=== PATIENT | male | born 1960 ===

== ENCOUNTER 2017-04-17 18:35 | Emergency (ER) | payer MEDICAID ==
[2017-04-17 18:49] VITALS: BP 149/102; PULSE 80; RESP 16; TEMP 97.3; O2SAT 99
--- NOTE | 2017-04-17 18:55 | ED PDOC ---
Upper Extremity Pain/Injury Time Seen by Provider: 04/17/17 18:54 Chief Complaint (Nursing): Upper Extremity Problem/Injury Chief Complaint (Provider): shoulder pain History Per: Patient History/Exam Limitations: no limitations Onset/Duration Of Symptoms: Days (x1 week) Current Symptoms Are (Timing): Still Present Additional Complaint(s): Peter Vargas is a 57 year old right hand dominant male who presents to the ED complaining of non-radiating left shoulder pain x 2 weeks. He denies any recent injury or trauma to shoulder but states he does a lot of heavy lifting on a regular basis. Patient denies any chest pain, SOB or ASENCIO. Patient reports taking 2 Motrin today around noon without relief. Tylenol taken the other day did not help either with pain. PMD: [facility] Past Medical History Reviewed: Historical Data, Nursing Documentation, Vital Signs Vital Signs: Last Vital Signs Temp 97.3 F L 04/17/17 18:44 Pulse 80 04/17/17 18:44 Resp 16 04/17/17 18:44 BP 149/102 H 04/17/17 18:44 Pulse Ox 99 04/17/17 18:44 - Medical History PMH: HTN - Surgical History Other surgeries: Unspecified pulmonary surgery - Family History Family History: States: No Known Family Hx - Living Arrangements Living Arrangements: With Family - Social History Current smoker - smoking cessation education provided: No Alcohol: None Drugs: Denies - Home Medications Home Medications: Ambulatory Orders Medication Instructions Recorded Cyclobenzaprine [Cyclobenzaprine 10 mg PO TID PRN #20 tab 04/17/17 HCl] Naproxen [Naprosyn] 500 mg PO BID #20 tab 04/17/17 traMADol [Ultram] 50 mg PO TID PRN #15 tab 04/17/17 - Allergies Allergies/Adverse Reactions: Allergies Allergy/AdvReac Type Severity Reaction Status Date / Time No Known Allergies Allergy Verified 04/17/17 18:48 Review of Systems ROS Statement: Except As Marked, All Systems Reviewed And Found Negative Musculoskeletal: Positive for: Shoulder Pain (left, x 2 weeks, denies trauma or injury) Physical Exam - Reviewed Nursing Documentation Reviewed: Yes Vital Signs Reviewed: Yes - Physical Exam Appears: Positive for: Well, Non-toxic, No Acute Distress Head Exam: Positive for: ATRAUMATIC Skin: Positive for: Normal Color, Warm. Negative for: Rash Eye Exam: Positive for: Normal appearance Neck: Positive for: Painless ROM Cardiovascular/Chest: Positive for: Regular Rate, Rhythm Respiratory: Positive for: Normal Breath Sounds. 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 Sling declined. Rx naprosyn , flexeril and tramadol given. 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 Scribe Attestation: Documented by Kenton Ruiz, acting as a scribe for Patricia Sykes PA-C Provider Scribe Attestation: All medical record entries made by the Scribe were at my direction and personally dictated by me. I have reviewed the chart and agree that the record accurately reflects my personal performance of the history, physical exam, medical decision making, and the department course for this patient. I have also personally directed, reviewed, and agree with the discharge instructions and disposition. Disposition - Clinical Impression Clinical Impression: Tendinitis of left shoulder - Patient ED Disposition Is Patient to be Admitted: No Counseled Patient/Family Regarding: Studies Performed, Diagnosis, Need For Followup, Rx Given - Disposition Referrals: Jose Elias Calvillo MD [Staff Provider] - Disposition: Routine/Home Disposition Time: 19:55 Condition: STABLE Additional Instructions: Take rx meds as directed. Follow up with clinic or with orthopedist for any persistent symptoms. Prescriptions: Cyclobenzaprine [Cyclobenzaprine HCl] 10 mg PO TID PRN #20 tab PRN Reason: Muscle Spasm Naproxen [Naprosyn] 500 mg PO BID #20 tab traMADol [Ultram] 50 mg PO TID PRN #15 tab PRN Reason: Pain, Moderate (4-7) Instructions: Shoulder Sprain (ED), Tendinitis (ED) Forms: [employer] ([place]an) Print Language: [id number]
--- NOTE | 2017-04-18 09:12 | RAD ---
PROCEDURE: Radiographs of the Left Shoulder HISTORY: pain for 2 weeks COMPARISON: No prior. FINDINGS: BONES: No acute fracture or destructive bony lesion identified. JOINTS: Limited degenerative changes are seen at the acromioclavicular joint with none apparent at the glenohumeral joint. No dislocation or subluxation. SOFT TISSUES: Normal. OTHER FINDINGS: None. IMPRESSION: No acute fracture or dislocation identified. Degenerative changes are mild at the acromioclavicular joint.
== END 2017-04-17 20:11 | disposition home or self-care (01) ==
LOC: H.ER 18:35
DX: M75.92 Shoulder lesion, unspecified, left shoulder (principal); I10 Essential (primary) hypertension
CPT/HCPCS: 73030; 96372; 99282; J1885